=== PATIENT | male | born 1985 | race Caucasian/White ===

== ENCOUNTER 2016-11-27 15:01 | Emergency (ER) | payer OTHER ==
[~2016-11-27] VITALS: Ht 177.8 cm; Wt 69.0 kg
[2016-11-27 15:15] VITALS: BP_SYST 138; BP_SYST 146; BP_DIAS 83; BP_DIAS 85; PULSE 58; PULSE 59; RESP 16; TEMP 97.8; O2SAT 99
[2016-11-27] MEDS ORDERED: ACETAMINOPHEN 500 MG CPLT PO ONE (15:30)
--- NOTE | 2016-11-27 16:27 | RADRPT ---
EXAM DATE/TIME: 11/27/2016 15:35 [facility] COMPARISON: No previous studies available for comparison. INDICATIONS : Fell down 12 stairs at the [facility]. MEDICAL HISTORY : None. SURGICAL HISTORY : None. ENCOUNTER: Initial ACUITY: 1 day PAIN SCORE: Non-responsive. LOCATION: Left shoulder FINDINGS: Multiple view examination of the left shoulder demonstrates no evidence of fracture or dislocation. The glenohumeral and acromioclavicular joints are maintained. There is normal range of motion betwee n internal and external rotation. Bony mineralization is normal. CONCLUSION: Unremarkable examination of the left shoulder. Leo Alvarez MD on November 27, 2016 at 16:25 Board Certified Radiologist. This report was verified electronically.
--- NOTE | 2016-11-27 16:48 | PD ---
HPI Chief Complaint: Fall Time Seen by Provider: 15:24 Travel History International Travel<30 days: No Contact w/Intl Traveler<30days: No Traveled to known affect area: No History of Present Illness HPI Is a 31-year-old man who presents to the emergency department after trip and fall down the stairs. Patient was at the [facility], when he tripped and fell from one landing to another landing on the stairs. He complains of pain and paresthesias in his left shoulder and left arm. He also some neck pain and headache. No other medical history other than seizures as a child. No other complaints. History Past Medical History Narrative Medical Seizures as a child Tetanus Vaccination: > 5 Years Influenza Vaccination: No Past Surgical History Surgical History: No Previous Surgery Social History Alcohol Use: No Tobacco Use: Yes Allergies-Medications (Allergen,Severity, Reaction): Coded Allergies: Penicillins (Verified Allergy, Intermediate, RASH, 11/27/16) Reported Meds & Prescriptions Reported Meds & Active Scripts Active No Active Prescriptions or Reported Medications Review of Systems Except as stated in HPI: all other systems reviewed are Neg Physical Exam Narrative GENERAL: 31-year-old man, full spinal mobilization, no acute distress. SKIN: Focused skin assessment warm/dry. HEAD: Atraumatic. Normocephalic. EYES: Pupils equal and round. No scleral icterus. No injection or drainage. ENT: No nasal bleeding or discharge. Mucous membranes pink and moist. NECK: Trachea midline. Some midline tenderness. CARDIOVASCULAR: Regular rate and rhythm. No murmur appreciated. RESPIRATORY: No accessory muscle use. Clear to auscultation. Breath sounds equal bilaterally. GASTROINTESTINAL: Abdomen soft, non-tender, nondistended. Hepatic and splenic margins not palpable. MUSCULOSKELETAL: No obvious deformities. Back exam is unremarkable. NEUROLOGICAL: Awake and alert. No obvious cranial nerve deficits. Strength full and equal upper and lower extremities. Maybe a little bit of weakness in extension in the left arm. Subjective sensory changes in the left arm. Symmetric reflexes. Data Data Last Documented VS Vital Signs Date Time Temp Pulse Resp B/P Pulse Ox O2 Delivery O2 Flow Rate FiO2 11/27/16 16:39 16 11/27/16 15:15 58 98 Room Air 11/27/16 15:15 138/83 11/27/16 15:[address] Brain W/O Iv Contrast(Rout) (11/27/16 ) Ct Cerv Spine W/O Contrast (11/27/16 ) Ct Thor Spine W/O Contrast (11/27/16 ) Shoulder, Complete (>2vws) (11/27/16 ) Acetaminophen (Tylenol) (11/27/16 15:30) Mri C Spine W/O Contrast (11/27/16 ) MDM Medical Decision Making Medical Screen Exam Complete: Yes Emergency Medical Condition: Yes Interpretation(s) X-ray left shoulder: Negative. Head CT: Negative. C-spine CT: No acute fracture. Etc. cleft disc protrusion at C5-C6, eccentric rectus protrusion at C6-C7. Differential Diagnosis Neck injury, radiculopathy, strain or sprain, brachial plexus injury, shoulder injury, other Narrative Course Medical decision making INITIAL: 31-year-old man, troponin fall down the stairs, paresthesias in the left arm with maybe some weakness in extension. We'll check CT labs, likely MRI. Patient signed out to Dr. garcia at 7 PM to follow-up on the results of MRI. Scripts No Active Prescriptions or Reported Meds Shaquille Reddy MD Nov 27, 2016 16:48
--- NOTE | 2016-11-27 16:57 | RADRPT ---
EXAM DATE/TIME: 11/27/2016 16:33 [facility] COMPARISON: No previous studies available for comparison. INDICATIONS : Headache after fall RADIATION DOSE: 56.35 CTDIvol (mGy) MEDICAL HISTORY : None SURGICAL HISTORY : None. ENCOUNTER: Initial ACUITY: 1 day PAIN SCALE: 5/10 LOCATION: cranial TECHNIQUE: Multiple contiguous axial images were obtained of the head. Using automated exposure control and adj ustment of the mA and/or kV according to patient size, radiation dose was kept as low as reasonably a chievable to obtain optimal diagnostic quality images. DICOM format image data is available electro nically for review and comparison. FINDINGS: CEREBRUM: The ventricles are normal for age. No evidence of midline shift, mass lesion, hemorrhage or acute in farction. No extra-axial fluid collections are seen. POSTERIOR FOSSA: The cerebellum and brainstem are intact. The 4th ventricle is midline. The cerebellopontine angle i s unremarkable. EXTRACRANIAL: The visualized portion of the orbits is intact. SKULL: The calvaria is intact. No evidence of skull fracture. CONCLUSION: No acute disease. Raphael Thomas MD on November 27, 2016 at 16:55 Board Certified Radiologist. This report was verified electronically.
--- NOTE | 2016-11-27 17:06 | RADRPT ---
EXAM DATE/TIME: 11/27/2016 16:35 [facility] COMPARISON: CT BRAIN W/O CONTRAST, November 27, 2016, 16:33. INDICATIONS : Neck pain after fall RADIATION DOSE: 32.64 CTDIvol (mGy) MEDICAL HISTORY : None SURGICAL HISTORY : None. ENCOUNTER: Initial ACUITY: 1 day PAIN SCALE: 6/10 LOCATION: neck TECHNIQUE: Volumetric scanning of the cervical spine was performed. Multiplanar reconstructions in the sagittal, coronal and oblique axial planes were performed. Using automated exposure control and adjustment o f the mA and/or kV according to patient size, radiation dose was kept as low as reasonably achievable to obtain optimal diagnostic quality images. DICOM format image data is available electronically f or review and comparison. FINDINGS: VERTEBRAE: Normal vertebral body height. ALIGNMENT: No evidence of subluxation. C2-C3: The bony spinal canal is normal in size. No evidence of disc bulge or herniation. The neural forami na are bilaterally patent. C3-C4: The bony spinal canal is normal in size. No evidence of disc bulge or herniation. The neural forami na are bilaterally patent. C4-C5: The bony spinal canal is normal in size. No evidence of disc bulge or herniation. The neural forami na are bilaterally patent. C5-C6: The examination demonstrates a central left paracentral disc protrusion. There is disc evident touchi ng the ventral aspect of the cord and encroaching upon the lateral recess and foramina on the left. T he foramina on the right is adequate. C6-C7: There is a broad-based, predominantly right paracentral disc protrusion. This abuts the ventral theca l sac and touches the ventral aspect of the cord. There is encroachment of disc on the lateral recess on the right. The foramina appear adequate. C7-T1: The bony spinal canal is normal in size. No evidence of disc bulge or herniation. The neural forami na are bilaterally patent. CONCLUSION: 1. No acute fracture identified. 2. Eccentric left disc protrusion at C5-6. 3. Eccentric right disc protrusion at C6-7. Ab Orr MD on November 27, 2016 at 17:01 Board Certified Radiologist. This report was verified electronically.
--- NOTE | 2016-11-27 17:39 | RADRPT ---
EXAM DATE/TIME: 11/27/2016 16:38 [facility] COMPARISON: No previous studies available for comparison. INDICATIONS : Back pain after fall RADIATION DOSE: 11.88 CTDIvol (mGy) MEDICAL HISTORY : None SURGICAL HISTORY : None. ENCOUNTER: Initial ACUITY: 1 day PAIN SCALE: 6/10 LOCATION: upper back TECHNIQUE: Volumetric scanning of the thoracic spine was performed. Multiplanar reconstructions in the sagittal , coronal and oblique axial planes were performed. Using automated exposure control and adjustment o f the mA and/or kV according to patient size, radiation dose was kept as low as reasonably achievable to obtain optimal diagnostic quality images. DICOM format image data is available electronically f or review and comparison. FINDINGS: The vertebral bodies of the thoracic spine are in normal alignment without evidence of subluxation. Vertebral body height is maintained. No fractures are seen. There is chronic endplate changes at the T8 and T9 levels. There are small non-obstructing bilateral renal stones. T1-T2: Normal. T2-T3: The thecal sac has a normal diameter. No evidence of disc bulge or protrusion. T3-T4: The thecal sac has a normal diameter. No evidence of disc bulge or protrusion. T4-T5: The thecal sac has a normal diameter. No evidence of disc bulge or protrusion. T5-T6: The thecal sac has a normal diameter. No evidence of disc bulge or protrusion. T6-T7: The thecal sac has a normal diameter. No evidence of disc bulge or protrusion. T7-T8: The thecal sac has a normal diameter. No evidence of disc bulge or protrusion. T8-T9: The thecal sac has a normal diameter. No evidence of disc bulge or protrusion. T9-T10: The thecal sac has a normal diameter. No evidence of disc bulge or protrusion. T10-T11: The thecal sac has a normal diameter. No evidence of disc bulge or protrusion. T11-T12: The thecal sac has a normal diameter. No evidence of disc bulge or protrusion. T12-L1: The thecal sac has a normal diameter. No evidence of disc bulge or protrusion. CONCLUSION: No acute disease. Leo Alvarez MD on November 27, 2016 at 17:34 Board Certified Radiologist. This report was verified electronically.
[2016-11-27 19:31] VITALS: BP 115/75; PULSE 70; RESP 16; O2SAT 100
--- NOTE | 2016-11-27 19:41 | RADRPT ---
EXAM DATE/TIME: 11/27/2016 19:01 [facility] COMPARISON: CT CERVICAL SPINE W/O CONTRAST, November 27, 2016, 16:35. INDICATIONS : Trauma. Pain after fall. MEDICAL HISTORY : Seizures. SURGICAL HISTORY : None. ENCOUNTER: Subsequent ACUITY: 1 day PAIN SCORE: 5/10 LOCATION: neck TECHNIQUE: Multiplanar, multisequence MRI examination of the cervical spine was performed. FINDINGS: VERTEBRAE: Normal vertebral body height. Homogeneous marrow signal. ALIGNMENT: No evidence of subluxation. CORD: Normal configuration and signal. POST FOSSA: The cerebellar tonsils are normal in position. No evidence of a ligamentous injury. C2-C3: The thecal sac has a normal configuration. There is no evidence of disc herniation or spinal canal s tenosis. The neural foramina are patent bilaterally. C3-C4: The thecal sac has a normal configuration. There is no evidence of disc herniation or spinal canal s tenosis. The neural foramina are patent bilaterally. C4-C5: The thecal sac has a normal configuration. There is no evidence of disc herniation or spinal canal s tenosis. The neural foramina are patent bilaterally. C5-C6: Moderate left paracentral/foraminal disc protrusion is present and likely impinging on the exiting le ft C6 nerve root. C6-C7: Bilobed disc protrusion present, right paracentral and left foraminal. There may be mild impingement on the exiting left C7 nerve root. There is mild spinal stenosis, eccentric towards the right, but no cord compression or cord signal abnormality. C7-T1: The thecal sac has a normal configuration. There is no evidence of disc herniation or spinal canal s tenosis. The neural foramina are patent bilaterally. CONCLUSION: 1. No fracture or subluxation of the cervical spine. 2. Age-indeterminate disc protrusions at C5/C6 and C6/C7 as described above. There is probable imping ement on the exiting left C6 nerve root and possible impingement on the exiting left C7 nerve root. M ild spinal stenosis, mainly at C6/C7, but without cord compression or cord signal abnormality. Leo Liao MD on November 27, 2016 at 19:36 Board Certified Radiologist. This report was verified electronically.
--- NOTE | 2016-11-27 19:46 | PD ---
Physical Exam Date Seen by Provider: Nov 27, 2016 Narrative GENERAL: SKIN: Warm and dry. HEAD: Atraumatic. Normocephalic. EYES: Pupils equal and round. No scleral icterus. No injection or drainage. ENT: No nasal bleeding or discharge. Mucous membranes pink and moist. NECK: Trachea midline. No JVD. ignacio collar in place removed and replaced with soft collar CARDIOVASCULAR: Regular rate and rhythm. RESPIRATORY: No accessory muscle use. Clear to auscultation. Breath sounds equal bilaterally. GASTROINTESTINAL: Abdomen soft, non-tender, nondistended. MUSCULOSKELETAL: Extremities without clubbing, cyanosis, or edema. No obvious deformities. NEUROLOGICAL: Awake and alert. No obvious cranial nerve deficits. Motor grossly within normal limits. Five out of 5 muscle strength in the arms and legs. Normal speech. only minor subjective sensory disturbance noted over left ue PSYCHIATRIC: Appropriate mood and affect; insight and judgment normal. Data Data Last Documented VS Vital Signs Date Time Temp Pulse Resp B/P Pulse Ox O2 Delivery O2 Flow Rate FiO2 11/27/16 19:31 70 16 115/75 100 Room Air 11/27/16 15:[address] Brain W/O Iv Contrast(Rout) (11/27/16 ) Ct Cerv Spine W/O Contrast (11/27/16 ) Ct Thor Spine W/O Contrast (11/27/16 ) Shoulder, Complete (>2vws) (11/27/16 ) Acetaminophen (Tylenol) (11/27/16 15:30) Mri C Spine W/O Contrast (11/27/16 ) MDM Medical Record Reviewed: Yes Supervised Visit with YO: No Interpretation(s) radiologist mri cervical CONCLUSION: 1. No fracture or subluxation of the cervical spine. 2. Age-indeterminate disc protrusions at C5/C6 and C6/C7 as described above. There is probable impingement on the exiting left C6 nerve root and possible impingement on the exiting left C7 nerve root. Mild spinal stenosis, mainly at C6/C7, but without cord compression or cord signal abnormality. Diagnosis Primary Impression: disc bulging c5/c6/c7 with mild peripheral nerve impingement Referrals: Jeffrey Foreman MD for further advise on treatment for your bulging disk pinching nerve Patient Instructions: Cervical Disc Herniation (ED), General Instructions Scripts No Active Prescriptions or Reported Meds Disposition: [address] LAW ENFORCEMNT Condition: Stable Light[place],Lucas Rafa MD Nov 27, 2016 19:46
== END 2016-11-27 20:22 ==
LOC: NEPC 15:01
DX: M50.122 Cervical disc disorder at C5-C6 level with radiculopathy (principal); W10.9XXA Fall (on) (from) unspecified stairs and steps, initial encounter; Y92.240 Courthouse as the place of occurrence of the external cause
CPT/HCPCS: 70450; 72125; 72128; 72141; 73030; 99285